=== PATIENT | female | born 1995 | race African-American/Black ===

== ENCOUNTER 2017-02-10 01:55 | Emergency (ER) | payer OTHER ==
[~2017-02-10] VITALS: Ht 157.5 cm; Wt 52.2 kg
[2017-02-10 02:36] LABS: HEMATOCRIT 38.1 % (37.0-47.0); HEMOGLOBIN 12.9 gm/dL (12.0-15.0); MCH 33.3 pg (26.0-34.0); MCHC 33.9 g/dL (28.0-37.0); MCV 98.2 fL (80.0-100.0); RBC 3.88 mil/uL (4.20-5.00); RDW 12.8 % (10.5-14.5); WBC 8.8 thou/uL (4.0-11.0)
[2017-02-10 02:50] LABS: CALCIUM 9.4 mg/dL (8.5-10.1); CREATININE 0.8 mg/dL (0.6-1.0); POTASSIUM 3.3 mmol/L (3.5-5.1)
[2017-02-10 04:05] VITALS: BP 107/69
[2017-02-11 23:13] LABS: CHLAMYDIA TRACHOMATIS-PCR Positive (Negative); NEISSERIA GONORRHEA-PCR Negative (Negative)
== END 2017-02-10 04:07 | disposition home or self-care (01) ==
LOC: ER 01:55
PROVIDERS: Emergency Medicine
DX: O20.0 Threatened abortion (principal); Z3A.01 Less than 8 weeks gestation of pregnancy

== ENCOUNTER 2017-03-28 20:19 | Inpatient (IN) | payer OTHER ==
[~2017-03-28] VITALS: Ht 154.9 cm; Wt 52.2 kg
--- NOTE | ~2017-03-28 | CNG ---
[facility] [employer] [place] [address] CYTO-NONGYN REPORT PROCEDURE Name: KASSIE VARGAS Room #: 445-P ADM IN M.R.#: [id number] Admission: 03/28/17 Date of : 95 Discharge: Report #: [id number] Path Case #: [id number] CYTOPATHOLOGY REPORT COLLECTION DATE: 03/31/2017 RECEIVED DATE: 03/31/2017 SUBMITTING PHYS: Dr. Steffanie Lu OTHER PHYS: CLINICAL HISTORY: Stomach hurting,SBO, N/V SPECIMEN(S) RECEIVED: A.Abdominal fluid * * * * * * * * * * * * FINAL DIAGNOSIS: A. Abdominal fluid: - No malignant cells identified. Reactive mesothelial cells and inflammatory cells present. PATHOLOGIST: Dash Cuba M.D. REPORT ELECTRONICALLY SIGNED BY: Dash Cuba M.D. DATE/TIME: 04/01/2017 10:40 * * * * * * * * * * * * GROSS PATHOLOGY: A. Abdominal fluid: The specimen is submitted unfixed, labeled "Kassie Vargas". Received by the Cytology Department is 43 mL of cloudy yellowish red fluid. One ThinPrep slide and a formalin fixed cell block were prepared. (mm 03.31.2017) PHILOSOPHY LECTURER(S): TITO Correa(ASCP)IAC INITIAL CPT CODE(S): A; 71383, 19710 Professional services performed by [facility] at [facility] [address] , [place] [address] Technical services performed by [facility] at [address] [place] [address]., [address], [place] [address]. [facility] [address] [place] [address], [address] [place] [address] PHONE: [phone] [facility] [address] [place] [address] CYTO-NONGYN REPORT PROCEDURE Name: KASSIE VARGAS Room #: 445-P ADM IN M.R.#: [id number] Admission: 03/28/17 Date of : 95 Discharge: Report #: [id number] Path Case #: [id number] DIRECTOR: Nikhil Cannon M.D. * * * END OF REPORT * * *
--- NOTE | ~2017-03-28 | HC ---
[facility] [address] [place] [address] CONSULTATION Name: DENISE VARGAS Room #: 445-P ADM IN M.R.#: [id number] Admission: 03/28/17 Attend Phys: Steffanie Lu Discharge: Date of : 95 Report #: [id number] THIS REPORT FOR: //name// CC: [facility] physician/PCP Steffanie Lu DATE OF SERVICE: 03/29/2017 REFERRING PROVIDER: Dr. Lu. REASON FOR CONSULT: Abdominal pain. HISTORY OF PRESENT ILLNESS: The patient is a 21-year-old -Italian female who has had recurring nausea, vomiting and abdominal pain for the past month. The patient was initially evaluated at [facility] where she was diagnosed with a miscarriage and per reports she had an emergency D and C performed. Upon discussing with the patient; however, she states that she had a surgical procedure where they made an incision in her abdomen and she does have what appears to be a well-healed incision at her umbilicus. Nonetheless, she was dismissed from [facility] only to present to [facility] 4 days ago with continued complaints where she was diagnosed with a small-bowel obstruction. The patient had an NG tube placed for decompression; however, became frustrated with her care there and left against medical advice yesterday only to present to our emergency room for ongoing management. The patient has since refused an NG tube placement after receiving a CT scan of the abdomen and pelvis last night that showed a mid small-bowel obstruction with dilated proximal small bowel and stomach as well as ascites throughout the abdomen. Currently, the patient states she has passed flatus yesterday, but has not had a bowel movement in quite some time. Currently, she is resting comfortably in her bed without complaints of nausea or vomiting and only mild abdominal cramping pain. PAST MEDICAL HISTORY: Reportedly a miscarriage recently, but no other known medical problems. MEDICATIONS: None. ALLERGIES: No known drug allergies. SOCIAL HISTORY: The patient denies tobacco, alcohol or illicit drug use. FAMILY HISTORY: Reviewed and noncontributory. REVIEW OF SYSTEMS: GENERAL: The patient denies nocturnal fevers or chills. HEENT: No change in vision, change in hearing. [facility] [address] [place] [address] CONSULTATION Name: DENISE VARGAS Room #: 445-[facility] IN .R.#: [id number] Admission: 03/28/17 Attend Phys: Steffanie Lu Discharge: Date of : 95 Report #: [id number] NECK: No swelling or difficulty swallowing. HEART: No chest pain, palpitations. LUNGS: No cough or shortness of breath. ABDOMEN: Abdominal pain with mild nausea. GENITOURINARY: No dysuria or hematuria. ENDOCRINE: No polyuria, polydipsia. HEMATOLOGIC: No history of bleeding or easy bruising. EXTREMITIES: No history of weakness or limited range of motion. NEUROLOGIC: No history of syncope or near syncopal episodes. SKIN AND INTEGUMENT: No history of abnormal lesions or moles. PSYCHIATRIC: No history of anxiety or depression. PHYSICAL EXAMINATION: VITAL SIGNS: Temperature 98.4, pulse 83, respirations 16, blood pressure 120/78. She stands 5 feet 1 inch tall and weighs 115 pounds. GENERAL: Alert and oriented, in no acute distress. HEENT: Normocephalic, atraumatic. Pupils equal, round, reactive to light. NECK: Supple, without lymphadenopathy. Trachea midline. HEART: Regular rate and rhythm. LUNGS: Clear to auscultation bilaterally. GASTROINTESTINAL: Abdomen is soft, moderately distended with a positive fluid wave from her marked ascites with mild diffuse tenderness to deep palpation. The patient has no guarding, no rebound and no peritoneal signs or symptoms otherwise. GENITOURINARY: Normal external female genitalia. EXTREMITIES: No clubbing, cyanosis or edema. NEUROLOGIC: Cranial nerves 2-12 are grossly intact. PSYCHIATRIC: Normal mood and affect. SKIN AND INTEGUMENT: No abnormal lesions or moles. LABORATORY AND X-RAY DATA: CBC shows white blood cell count of 4.0 thousand, hemoglobin 9.9, platelets 191,000. Creatinine is 0.8. Her albumin was 3.4 on admission last evening. Liver function enzymes are normal. Lipase was normal. Lactic acid normal at 0.5. Urine negative. Urinalysis largely negative. CT scan of her abdomen and pelvis as per HPI shows free fluid in the pelvis as well as in the bilateral upper quadrants around the liver and spleen that appears minimally complex. There is nondistended colon, but there are multiple dilated small bowel loops measuring up to 3.7 cm in diameter without wall thickening, pneumatosis or free air. ASSESSMENT AND PLAN: A 21-year-old -Italian female with what she relates as some form of surgical procedure, possibly a diagnostic laparoscopy 1 month ago at [facility]; however, records indicate she also had a D and C for miscarriage who has been battling abdominal pain, nausea and vomiting over the past month. CT scan shows dilated loops of small bowel consistent with a small-bowel obstruction; however, she is refusing NG tube [facility] [address] [place] [address] CONSULTATION Name: DENISE VARGAS Room #: 445-P [facility] IN M.Mohit.#: [id number] Admission: 03/28/17 Attend Phys: Steffanie Lu Discharge: Date of : 95 Report #: [id number] decompression at this time. The patient was recently treated with NG tube decompression and bowel rest at [facility] before leaving [place] yesterday to present to our facility for ongoing care. At this time, I did carry out a long discussion with her regarding the need for bowel rest and decompression; however, she is adamant that she will not have an NG tube once again. As such, we will continue with conservative care with n.p.o. status, IV fluid rehydration and I will obtain operative reports from [facility] as well as her most recent admission report from [facility]. It may be that this patient does have a bowel obstruction from adhesions if she truly had a surgical procedure 1 month ago, but nonetheless, we will initiate conservative therapy first and proceed to surgical intervention only if warranted in the next couple of days after a trial of conservative care has failed. I sincerely appreciate this consult. I will follow closely and leave any further recommendations in the patient's chart as appropriate. <ELECTRONICALLY SIGNED> By: Hellen Bruno MD, FACS 03/29/17 1437 [id number] Hellen Bruno MD, FACS /nt
--- NOTE | ~2017-03-28 | O ---
[facility] [address] [place] [address] OPERATIVE REPORT Name: DENISE VARGAS Room #: 445-P ADM IN M.R.#: [id number] Admission: 03/28/17 Attend Phys: Steffanie Lu Discharge: Date of : 95 Report #: [id number] THIS REPORT FOR: //name// CC: [facility] physician/PCP Steffanie Lu DATE OF SERVICE: 03/31/2017 PREOPERATIVE DIAGNOSIS: Small-bowel obstruction. POSTOPERATIVE DIAGNOSIS: Small-bowel obstruction secondary to adhesions. PROCEDURE PERFORMED: Laparoscopic lysis of adhesions with release of a small-bowel obstruction. SURGEON: Hellen Bruno M.D. DIESEL POWERPLANT MECHANIC HELPER: HEVER Chamorro ANESTHESIA: General endotracheal anesthesia. ESTIMATED BLOOD LOSS: Minimal (less than 5 mL). COMPLICATIONS: None appreciated. SPECIMENS: Intra-abdominal free fluid for both culture and flow cytology. INDICATIONS: The patient is a 21-year-old -Maldivian female who is approximately 1 month status post diagnostic laparoscopy done at [facility] for concern of ectopic . Intraoperative findings at that time showed no evidence of pathology other than a remote possibility of a pelvic inflammatory disease. They did encounter a large amount of intra-abdominal free fluid that was irrigated and suctioned out at that time. The patient then has been admitted a couple of times for small-bowel obstruction and as she has failed conservative management, indication was for operative intervention today with findings of numerous bands of adhesions, one of which was causing an overt small-bowel obstruction at the mid small bowel. In addition, the patient had nearly 2 liters of intra-abdominal free fluid that appeared simple in nature and was sent for diagnosis. DESCRIPTION OF PROCEDURE: After explaining the risks, benefits and alternatives of the procedure with the patient in detail and obtaining consent, the patient was brought to the operating room and placed supine on the operating room table. After conducting a thorough timeout procedure verifying correct patient and procedure, the patient was given general endotracheal anesthesia. Once adequate anesthesia was obtained, SCDs were placed on the patient's bilateral lower [address] [address] OPERATIVE REPORT Name: MICKIEPATTYJUAN CARLOSDENISE Room #: 445-P ADM IN M.R.#: [id number] Admission: 03/28/17 Attend Phys: Steffanie Lu Discharge: Date of : 95 Report #: [id number] extremities and she was given a preoperative dose of antibiotics in line with the SCIP protocol. The patient's abdomen was then prepped and draped in standard surgical sterile fashion. A 5 mL of 0.5% Marcaine with epinephrine were used to anesthetize the skin in the left upper quadrant and midclavicular line in a subcostal location. A #15 bladed scalpel was used to create a small skin raad at this location. A 5 mm Visiport was placed over 0 degree 5 mm laparoscope and was introduced through this incision site. Once intra-abdominal placement was verified visually, the obturator for the trocar and laparoscope were both removed and the abdomen was insufflated to 15 mmHg using carbon dioxide gas. The laparoscope was changed to a 5-mm 30-degree laparoscope, which was reintroduced through this trocar. The entire abdomen was evaluated and we immediately saw numerous loops of markedly dilated proximal small bowel as well as decompressed distal small bowel. The left abdomen was devoid of adhesions and I was able to place two additional 5 mm working trocars. The first was placed lateral to the umbilicus at the anterior axillary line and the other was placed in the left lower quadrant at the site of a prior incision site that was still healing. Both additional trocars were placed after anesthetizing the skin at each location with 5 mL of 0.5% Marcaine with epinephrine and I had created small skin nicks using a #15 bladed scalpel. Laparoscope was placed through the 5 mm port lateral to the umbilicus and I now utilized the suction systems integration engineer device to suction out nearly 2 liters of intra-abdominal fluid, which was collected sterilely and passed off the field to microbiology for culture as well as to pathology for flow cytometry to evaluate further. I then placed the patient in Trendelenburg position with right side elevated and was able to identify the terminal ileum. The appendix appeared to be stuck retrocecal, but I saw no evidence of inflammation. I proceeded to walk the small bowel backwards from the ileocecal valve proximally until the mid small bowel where I found overt evidence of a thick band of omentum stuck down over top of the small bowel causing an obstruction. This was easily freed with Harmonic scalpel, staying well away from the edge of the bowel at all times and released the small-bowel obstruction in full. The markedly dilated fluid and air contained within the proximal small bowel traversed into the distal small bowel and ultimately into the ascending colon during the course of the procedure. I continued running the small bowel proximally from this location all the way to the ligament of Treitz and found numerous interloop adhesions that were of gelatinous, thick, sticky bands and they were easily lysed with EndoShears dissection. Hemostasis was assured throughout. One final evaluation of the rest of the intra-abdominal domain showed no further evidence of pathology whatsoever. The abdomen was fully desufflated. All trocars removed under direct vision. A 4-0 Monocryl was used in a standard subcuticular fashion for all skin incisions and Dermabond glue was applied to all skin wounds. At the end of the procedure, all instrument, needle and sponge counts were correct. The patient tolerated the procedure without incident, was awakened in the [facility] [address] [place] [address] OPERATIVE REPORT Name: JUAN CARLOS VARGASLAH Room #: 445-P [facility] IN M.R.#: [id number] Admission: 03/28/17 Attend Phys: Steffanie Lu Discharge: Date of : 95 Report #: [id number] operating room, transitioned to the recovery room in stable condition with no apparent complications. <ELECTRONICALLY SIGNED> By: Hellen Bruno MD, FACS 04/01/17 0903 [id number] Hellen Bruno MD, FACS /nt
[2017-03-28 20:20] VITALS: BP 128/90
[2017-03-28] MEDS ORDERED: SCOPOLAMINE1 EACH TRANSDERM (22:02)
[2017-03-28 22:04] LABS: ABSOLUTE NEUTROPHILS 2.9 thou/uL (1.4-8.2); BASOPHILS 0.4 % (0.0-2.0); EOSINOPHILS 4.8 % (0.0-3.0); HEMATOCRIT 33.7 % (37.0-47.0); LYMPHOCYTES 32.8 % (24.0-44.0); MCH 31.8 pg (26.0-34.0); MCHC 32.6 g/dL (28.0-37.0); MCV 97.6 fL (80.0-100.0); MONOCYTES 9.4 % (1.0-8.0); PLATELET COUNT 230 thou/uL (150-400); POLYS 52.6 % (36.0-66.0); RBC 3.46 mil/uL (4.20-5.00); RDW 13.1 % (10.5-14.5); URINE BILIRUBIN NEGATIVE (Negative); URINE BLOOD 3+ (Negative); URINE COLOR YELLOW; URINE GLUCOSE-RANDOM* NEGATIVE (Negative); URINE KETONES 1+ (Negative); URINE NITRITE NEGATIVE (Negative); URINE PROTEIN (DIPSTICK) NEGATIVE (Negative); URINE SPECIFIC GRAVITY 1.015 (1.003-1.035); URINE UROBILINOGEN 0.2 E.U./dl (0.2-1.0); WBC 5.5 thou/uL (4.0-11.0)
[2017-03-28 22:05] LABS: MANUAL DIFF NO
[2017-03-28 22:11] LABS: CALCIUM 9.1 mg/dL (8.5-10.1); CREATININE 0.8 mg/dL (0.6-1.0); POTASSIUM 3.1 mmol/L (3.5-5.1)
[2017-03-28 22:17] LABS: ALBUMIN 3.4 g/dL (3.4-5.0); DIRECT BILIRUBIN 0.1 mg/dL (<0.1-0.3); SQUAMOUS 0-3 Few /LPF (0-3); TOTAL BILIRUBIN 0.4 mg/dL (<0.1-1.0); TOTAL PROTEIN 8.3 g/dL (6.4-8.2); URINE WBC 0-5 Rare /HPF (0-5)
[2017-03-28 22:18] LABS: BACTERIA 1-9 Few /HPF (None Seen); CASTS None Seen /LPF (None Seen); CRYSTALS None Seen /LPF (None Seen); URINE RBC 0-2 Rare /HPF (0-2)
[2017-03-28 23:49] VITALS: BP 124/83
[2017-03-29 00:10] VITALS: BP 113/78
[2017-03-29 04:00] VITALS: BP 105/63
[2017-03-29 05:42] LABS: HEMATOCRIT 30.7 % (37.0-47.0); HEMOGLOBIN 9.9 gm/dL (12.0-15.0); MCH 31.3 pg (26.0-34.0); MCHC 32.3 g/dL (28.0-37.0); MCV 96.8 fL (80.0-100.0); RBC 3.17 mil/uL (4.20-5.00); RDW 13.1 % (10.5-14.5)
[2017-03-29 05:57] LABS: CALCIUM 8.5 mg/dL (8.5-10.1); CREATININE 0.8 mg/dL (0.6-1.0); POTASSIUM 3.9 mmol/L (3.5-5.1)
[2017-03-29 07:44] VITALS: BP 120/78
[2017-03-29 15:37] VITALS: BP 120/73
[2017-03-29 20:39] VITALS: BP 109/62
[2017-03-30 05:11] VITALS: BP 115/68
[2017-03-30 06:09] LABS: HEMOGLOBIN 10.1 gm/dL (12.0-15.0); MCH 31.7 pg (26.0-34.0); MCHC 32.6 g/dL (28.0-37.0); MCV 97.2 fL (80.0-100.0); PLATELET COUNT 213 thou/uL (150-400); RBC 3.19 mil/uL (4.20-5.00); RDW 13.3 % (10.5-14.5); WBC 3.5 thou/uL (4.0-11.0)
[2017-03-30 06:25] LABS: CALCIUM 8.2 mg/dL (8.5-10.1); CREATININE 0.6 mg/dL (0.6-1.0); MAGNESIUM 1.5 mg/dL (1.8-2.4); POTASSIUM 3.2 mmol/L (3.5-5.1)
[2017-03-30 06:36] LABS: MANUAL DIFF YES
[2017-03-30 08:00] VITALS: BP 104/64
[2017-03-30 08:10] LABS: ABSOLUTE NEUTROPHILS 1.8 thou/uL (1.4-8.2); TOTAL CELL COUNT 100
[2017-03-30 08:11] LABS: ANISOCYTOSIS SLIGHT
[2017-03-30 16:35] VITALS: BP 102/63
[2017-03-30 20:26] VITALS: BP 100/69
[2017-03-31] VITALS (10 sets, daily range): BP systolic 107–132; BP diastolic 63–82
[2017-03-31 06:27] LABS: HEMOGLOBIN 9.9 gm/dL (12.0-15.0); MCH 31.9 pg (26.0-34.0); MCHC 32.9 g/dL (28.0-37.0); MCV 96.7 fL (80.0-100.0); PLATELET COUNT 223 thou/uL (150-400)
[2017-03-31 06:29] LABS: MANUAL DIFF YES
[2017-03-31 06:43] LABS: CALCIUM 8.6 mg/dL (8.5-10.1); CREATININE 0.6 mg/dL (0.6-1.0); MAGNESIUM 1.9 mg/dL (1.8-2.4); POTASSIUM 3.6 mmol/L (3.5-5.1)
[2017-03-31 08:11] LABS: ABSOLUTE NEUTROPHILS 1.9 thou/uL (1.4-8.2); ATYPICAL LYMPHS 1 %; TOTAL CELL COUNT 100
[2017-04-01 00:38] VITALS: BP 108/50
[2017-04-01 04:55] VITALS: BP 109/59
[2017-04-01 06:09] LABS: HEMATOCRIT 30.7 % (37.0-47.0); MCH 31.5 pg (26.0-34.0); MCHC 32.6 g/dL (28.0-37.0); MCV 96.6 fL (80.0-100.0); RBC 3.18 mil/uL (4.20-5.00); RDW 12.9 % (10.5-14.5)
[2017-04-01 06:20] LABS: CALCIUM 8.6 mg/dL (8.5-10.1); CREATININE 0.6 mg/dL (0.6-1.0); POTASSIUM 3.7 mmol/L (3.5-5.1)
[2017-04-01 09:59] VITALS: BP 96/51
[2017-04-01 16:41] VITALS: BP 116/77
[2017-04-01 20:50] VITALS: BP 96/59
[2017-04-02 05:01] VITALS: BP 90/45
[2017-04-02 07:55] VITALS: BP 99/56
[2017-04-02 15:29] VITALS: BP 104/70
[2017-04-02 19:55] VITALS: BP 99/72
[2017-04-03 03:59] VITALS: BP 115/66
[2017-04-03 08:52] VITALS: BP 107/67
[2017-04-03] MEDS ORDERED: HYDROCODON-ACE1 EAC7 PO (10:37)
[2017-04-03] MEDS ORDERED: COLACE100 MG PO (10:37)
[2017-04-03] MEDS ORDERED: MIRALAX17 GM PO (10:38)
[2017-04-03 12:09] VITALS: BP 107/67
== END 2017-04-03 13:38 | disposition home or self-care (01) | DRG 336 ==
LOC: ER 20:19 → EROBS 23:18 → 4S 23:18
PROVIDERS: Emergency Medicine; Internal Medicine; Nurse Practitioner Family; Surgery
PROC: 0D9670Z Drainage of Stomach with Drainage Device, Via Natural or Artificial Opening (ICD-10-PCS; principal; 2017-03-30)
PROC: 0DN84ZZ Release Small Intestine, Percutaneous Endoscopic Approach (ICD-10-PCS; 2017-03-31)
DX: K56.50 Intestinal adhesions [bands], unspecified as to partial versus complete obstruction (principal); R18.8 Other ascites; E87.6 Hypokalemia; E83.42 Hypomagnesemia
CPT/HCPCS: 10195; 50010; 50101; 50249; 50386; 50455; 50555; 50962; 51489; 52265; 53307; 54118; 56462; 56526; 57092; 62110; 62900; 70005